=== PATIENT | female | born 1955 | race Caucasian/White ===

== ENCOUNTER 2018-04-26 02:56 | Inpatient (IN) | payer BC ==
[2018-04-26] VITALS (7 sets, daily range): BP systolic 119–155
[~2018-04-26] VITALS: Ht 157.5 cm; Wt 49.9 kg
[2018-04-26] MEDS ORDERED: MAGNESIUM SULFATE 50 ML IV ONE (03:15)
[2018-04-26] MEDS ORDERED: IPRATROPIUM/ALBUTEROL SULFATE 3 ML AMPUL.NEB INH ONE ×2 (03:15→05:30)
[2018-04-26] MEDS ORDERED: methylPREDNISolone SOD SUCC/PF 62.5 MG/ML VIAL IVP ONE (03:15)
[2018-04-26] MEDS ORDERED: ONDANSETRON HCL 4 MG/2 ML VIAL IVP ONE (03:15)
[2018-04-26] MEDS ORDERED: NACL 0.9% 1,000 ML IV ONE (03:15)
[2018-04-26 04:12] LABS: BASOPHILS % (AUTO) 0.4 % (0.0-2.0); EOSINOPHILS % (AUTO) 0.1 % (0.0-4.0); HEMATOCRIT 38.4 % (36-48); HEMOGLOBIN 13.1 g/dL (12.0-16.0); LYMPHOCYTES # (AUTO) 0.7 K/uL (1.0-5.5); LYMPHOCYTES % (AUTO) 11.5 % (20.5-51.5); MEAN CORPUSCULAR HEMOGLOBIN 38 pg (27-31); MEAN CORPUSCULAR HGB CONC 34 % (32-36); MEAN CORPUSCULAR VOLUME 110 fL (79.0-98.0); MONOCYTES # (AUTO) 0.7 K/uL (0.0-1.0); MONOCYTES % (AUTO) 11.3 % (1.7-9.3); NEUTROPHILS % (AUTO) 76.7 % (40.0-70.0); PLATELET COUNT (AUTO) 140 K/uL (130-430); RED BLOOD CELL COUNT(AUTO) 3.48 MIL/uL (4.2-6.2); RED CELL DISTRIBUTION WIDTH 17.6 % (9.0-15.0); WHITE BLOOD COUNT (AUTO) 6.4 K/uL (4.8-10.8)
[2018-04-26 04:22] LABS: ALBUMIN 4.3 g/dL (3.4-4.8); CALCIUM 9.5 mg/dL (8.4-11.0); CREATININE 0.58 mg/dL (0.55-1.30); POTASSIUM 3.2 mmol/L (3.5-5.1); TOTAL BILIRUBIN 2.3 mg/dL (0.0-1.0)
[2018-04-26] MEDS ORDERED: FLUT1DIS5 INH (04:35)
[2018-04-26] MEDS ORDERED: POTASSIUM CHLORIDE 20 MEQ TAB.PRT.SR PO ONE (06:00)
[2018-04-26] MEDS ORDERED: hydrALAZINE HCL 20 MG/ML VIAL IVP ONE (06:00)
[2018-04-26] MEDS: POTASSIUM CHLORIDE 40 MEQ in D5NS 1,000 ML IV SCH ×2 (08:28→23:34)
[2018-04-26] MEDS ORDERED: PANTOPRAZOLE SODIUM 40 MG/VIAL (PROTONIX) IVP ONE (10:15)
[2018-04-26] MEDS ORDERED: chlordiazePOXIDE HCL 25 MG CAPSULE PO PRN (10:15)
[2018-04-26] MEDS ORDERED: THIAMINE HCL 100 MG in NS 50 ML IV ONE (10:15)
[2018-04-26] MEDS ORDERED: LORazepam 2 MG/ML VIAL IM PRN (10:15)
[2018-04-26] MEDS ORDERED: ONDANSETRON HCL 4 MG/2 ML VIAL IVP PRN (10:15)
[2018-04-26] MEDS ORDERED: NICOTINE 21 MG/24 HR PATCH.TD24 TD ONE (10:15)
[2018-04-26] MEDS: methylPREDNISolone SOD SUCC 40 MG/ML VIAL IVP SCH ×3 (11:31→23:34)
[2018-04-26] MEDS: LevALBUTEROL HCL 1.25 MG/0.5 ML *CONC.* VIAL.NEB (XOPENEX CONC.) INH PRN ×2 (11:38→20:03)
[2018-04-26] MEDS: LevALBUTEROL HCL 1.25 MG/0.5 ML *CONC.* VIAL.NEB (XOPENEX CONC.) INH SCH ×2 (13:28→17:52)
[2018-04-27 00:24] VITALS: BP_SYST 157
[2018-04-27] MEDS: LevALBUTEROL HCL 1.25 MG/0.5 ML *CONC.* VIAL.NEB (XOPENEX CONC.) INH SCH ×4 (01:10→19:56)
[2018-04-27] MEDS: methylPREDNISolone SOD SUCC 40 MG/ML VIAL IVP SCH ×4 (05:42→23:08)
[2018-04-27] MEDS: LevALBUTEROL HCL 1.25 MG/0.5 ML *CONC.* VIAL.NEB (XOPENEX CONC.) INH PRN ×3 (05:53→23:45)
[2018-04-27 07:16] LABS: HEMATOCRIT 33.7 % (36-48); HEMOGLOBIN 11.5 g/dL (12.0-16.0); LYMPHOCYTES # (AUTO) 0.3 K/uL (1.0-5.5); MEAN CORPUSCULAR HEMOGLOBIN 38 pg (27-31); MEAN CORPUSCULAR HGB CONC 34 % (32-36); MEAN CORPUSCULAR VOLUME 112 fL (79.0-98.0); MONOCYTES # (AUTO) 0.5 K/uL (0.0-1.0); MONOCYTES % (AUTO) 5.8 % (1.7-9.3); NEUTROPHILS # (AUTO) 8.1 K/uL (1.8-7.7); NEUTROPHILS % (AUTO) 91.2 % (40.0-70.0); PLATELET COUNT (AUTO) 107 K/uL (130-430); RED BLOOD CELL COUNT(AUTO) 3.01 MIL/uL (4.2-6.2); RED CELL DISTRIBUTION WIDTH 17.2 % (9.0-15.0); WHITE BLOOD COUNT (AUTO) 8.9 K/uL (4.8-10.8)
[2018-04-27 07:20] LABS: CALCIUM 9.2 mg/dL (8.4-11.0); CREATININE 0.54 mg/dL (0.55-1.30)
[2018-04-27 08:00] VITALS: BP_SYST 132
[2018-04-27] MEDS ORDERED: ENOXAPARIN SODIUM 40 MG/0.4 ML SYRINGE SUBCUT ONE (09:00)
[2018-04-27] MEDS: ENOXAPARIN SODIUM 40 MG/0.4 ML SYRINGE SUBCUT SCH (09:53)
[2018-04-27] MEDS: NICOTINE 21 MG/24 HR PATCH.TD24 TD SCH (09:53)
[2018-04-27] MEDS: PANTOPRAZOLE SODIUM 40 MG/VIAL (PROTONIX) IVP SCH (09:53)
[2018-04-27] MEDS: FLUTICASONE/VILANTEROL 1 EACH BLST.W.DEV INH SCH (10:27)
[2018-04-27 12:39] VITALS: BP_SYST 132
[2018-04-27] MEDS: POTASSIUM CHLORIDE 40 MEQ in D5NS 1,000 ML IV SCH (12:45)
[2018-04-27 16:40] VITALS: BP_SYST 123
[2018-04-27 19:55] VITALS: BP_SYST 143
[2018-04-27 23:57] VITALS: BP_SYST 140
[2018-04-28] MEDS: LevALBUTEROL HCL 1.25 MG/0.5 ML *CONC.* VIAL.NEB (XOPENEX CONC.) INH SCH ×3 (01:00→12:16)
[2018-04-28] MEDS: POTASSIUM CHLORIDE 40 MEQ in D5NS 1,000 ML IV SCH (01:41)
[2018-04-28] MEDS: LevALBUTEROL HCL 1.25 MG/0.5 ML *CONC.* VIAL.NEB (XOPENEX CONC.) INH PRN (04:51)
[2018-04-28] MEDS: methylPREDNISolone SOD SUCC 40 MG/ML VIAL IVP SCH ×2 (05:39→12:19)
[2018-04-28 07:02] LABS: ALBUMIN 3.3 g/dL (3.4-4.8); BILIRUBIN,DIRECT 0.3 mg/dL (0.0-0.3); TOTAL BILIRUBIN 0.9 mg/dL (0.0-1.0)
[2018-04-28 07:55] VITALS: BP_SYST 159
[2018-04-28] MEDS: ENOXAPARIN SODIUM 40 MG/0.4 ML SYRINGE SUBCUT SCH (08:37)
[2018-04-28] MEDS: NICOTINE 21 MG/24 HR PATCH.TD24 TD SCH (08:37)
[2018-04-28] MEDS: FLUTICASONE/VILANTEROL 1 EACH BLST.W.DEV INH SCH (08:37)
[2018-04-28] MEDS: PANTOPRAZOLE SODIUM 40 MG/VIAL (PROTONIX) IVP SCH (08:37)
[2018-04-28] MEDS ORDERED: fentaNYL CITRATE/PF 100 MCG/2 ML AMP ONE (13:33)
[2018-04-28] MEDS ORDERED: SIMETHICONE 40 MG/0.6 ML ML ONE (13:33)
[2018-04-28] MEDS ORDERED: MIDAZOLAM HCL 5 MG/5 ML VIAL ONE (13:33)
== END 2018-04-28 16:31 | disposition left against medical advice (07) | DRG 392 ==
LOC: SED 02:56 → STU 06:26
PROVIDERS: ADMIT Family Medicine; ATTEND Family Medicine
DX: R11.2 Nausea with vomiting, unspecified (principal); E87.1 Hypo-osmolality and hyponatremia; J44.9 Chronic obstructive pulmonary disease, unspecified; I10 Essential (primary) hypertension; F41.9 Anxiety disorder, unspecified; M19.90 Unspecified osteoarthritis, unspecified site; F17.210 Nicotine dependence, cigarettes, uncomplicated; J38.7 Other diseases of larynx; R10.9 Unspecified abdominal pain; F10.20 Alcohol dependence, uncomplicated; E87.6 Hypokalemia; R13.10 Dysphagia, unspecified; Z53.21 Procedure and treatment not carried out due to patient leaving prior to being seen by health care provider; Z88.0 Allergy status to penicillin; Z88.1 Allergy status to other antibiotic agents; Z88.2 Allergy status to sulfonamides
CPT/HCPCS: 36415; 70490; 71045; 74021; 76700-TC; 80048; 80053; 80076; 83735-TC; 84100-TC; 85025; 94640; 94760; 96365; 96375; 99285; C9113; J0360; J1030; J1650; J2250; J2405; J2930; J3010; J3411; J3475; J3480; J7042; J7612; J7620